=== PATIENT | male | born 1940 | race Caucasian/White ===

== ENCOUNTER 2016-06-09 11:02 | Outpatient (CLI) | payer MEDICARE, OTHER | END 2016-06-09 11:03 | disposition home or self-care (01) | DX: G47.33 Obstructive sleep apnea (adult) (pediatric) (principal) | CPT/HCPCS: 99213; G0463 ==

== ENCOUNTER 2017-08-27 11:10 | Outpatient (CLI) | payer MEDICARE, OTHER | END 2017-08-27 11:11 | disposition home or self-care (01) | LOC: SC 11:10 | PROVIDERS: ATTEND Nurse Practitioner Family | DX: G47.33 Obstructive sleep apnea (adult) (pediatric) (principal) | CPT/HCPCS: 99214; G0463; 99212 ==

== ENCOUNTER 2018-01-12 11:25 | Outpatient (CLI) | payer MEDICARE, OTHER | END 2018-01-12 11:26 | disposition home or self-care (01) | LOC: SC 11:25 | PROVIDERS: ATTEND Nurse Practitioner Family | DX: G47.33 Obstructive sleep apnea (adult) (pediatric) (principal) | CPT/HCPCS: 99214; G0463; 99212 ==

== ENCOUNTER 2018-07-17 22:10 | Emergency (ER) | payer MEDICARE, OTHER ==
[2018-07-17 22:19] VITALS: BP 161/78
--- NOTE | 2018-07-17 23:29 | ED Physician Documentation ---
History of Present Illness - Stated complaint Stated Complaint: BP CONCERN - Chief complaint Chief Complaint: General - History obtained from History obtained from: Patient, Family - History of Present Illness Timing: Today - Additonal information Additional information: 78-year-old male had a syncopal episode 2 days ago after getting nauseous at his breakfast table. He did not injure himself and he subsequently recovered without sequelae. He denies any current illness. He states that he has had this nausea about every 6 months previously and he has been evaluated for here in the emergency department with negative workup. Tonight he had felt warm and he became concerned and checked his blood pressure and it was elevated. He became concerned about this and is come to the emergency department for blood pressure check. He states that he is not interested in further workup of his episode from . Review of Systems Constitutional: denies: Fever, Chills Eyes: denies: Decreased vision Ears: denies: Ear pain Nose: denies: Rhinorrhea / runny nose, Congestion Throat: denies: Sore throat Cardiac: denies: Chest pain / pressure, Palpitations Respiratory: denies: Dyspnea, Cough GI: reports: Nausea. denies: Abdominal Pain, Vomiting, Constipation, Diarrhea : denies: Dysuria, Frequency Skin: denies: Rash Musculoskeletal: denies: Neck pain, Back pain, Extremity pain Neurologic: reports: Syncope. denies: Generalized weakness, Focal weakness, Numbness, Seizure, Confused, Altered mental status, Headache, Head injury, LOC PD PAST MEDICAL HISTORY - Past Medical History Cardiovascular: Hypertension, High cholesterol Respiratory: None Endocrine/Autoimmune: None GI: Colon polyps : Other HEENT: Chronic hearing loss, Other Psych: None Musculoskeletal: Osteoarthritis, Other Derm: None - Past Surgical History Past Surgical History: Yes General: Colonoscopy Ortho: Other Cardiovascular: Cardiac catheterization HEENT: Cataracts - Present Medications Home Medications: Ambulatory Orders Medication Instructions Recorded Confirmed Aspirin Chewable [[facility] 81 mg PO DAILY 06/27/13 06/25/14 Aspirin] Atorvastatin Calcium 300 mg PO 06/27/13 06/25/14 Carvedilol 6.25 mg PO 06/25/14 06/25/14 Nitroglycerin [Nitrostat] 0.4 mg SL PRN PRN 06/25/14 06/25/14 - Allergies Allergies/Adverse Reactions: Allergies Allergy/AdvReac Type Severity Reaction Status Date / Time No Known Drug Allergies Allergy Verified 07/17/18 22:19 - Social History Does the pt smoke?: No Smoking Status: Never smoker Does the pt drink ETOH?: Yes - Immunizations Immunizations are current?: Yes PD ED PE NORMAL - Vitals Vital signs reviewed: Yes (hypertensive systolic ) - General General: Alert and oriented X 3, No acute distress, Well developed/nourished - HEENT HEENT: Atraumatic, PERRL, EOMI, Ears normal, Moist mucous membranes - Neck Neck: Supple, no meningeal sign, No bony TTP - Cardiac Cardiac: RRR, No murmur - Respiratory Respiratory: No respiratory distress, Clear bilaterally - Abdomen Abdomen: Soft, Non tender - Back Back: No CVA TTP, No spinal TTP - Derm Derm: Normal color, Warm and dry, No rash - Extremities Extremities: No deformity, No edema - Neuro Neuro: Alert and oriented X 3, ingot supervisor 2-12 intact, No motor deficit, No sensory deficit, Normal speech Eye Opening: Spontaneous Motor: Obeys Commands Verbal: Oriented GCS Score: 15 - Psych Psych: Normal mood, Normal affect Results - Vitals Vitals: Vital Signs - 24 hr 07/17/18 22:12 Temperature 36.6 C Heart Rate 67 Respiratory 15 Rate Blood Pressure 161/78 H O2 Saturation 98 Oxygen O2 Source Room air Procedures - IVC sono (time) 2325 Bedside IVC sono: IVC measures (cm) (1.68), Euvolemia PD MEDICAL DECISION MAKING - ED course Complexity details: reviewed old records, reviewed results, re-evaluated patient, considered differential, d/w patient, d/w family ED course: 78-year-old male with a history of nonocclusive coronary artery disease who has had multiple stress tests which are negative has had prior workups here in the emergency department for similar situations which were also negative. Today he is here with elevated blood pressure and on review of systems we really find nothing of significance with the exception of the episode he had 2 days ago. I have offered to complete a workup related to the syncopal episode and the patient declines. He states that he has had prior workups without finding he suspects this will be similar today. He does not feel ill. He is primarily concerned about his blood pressure numbers and I discussed with him numbers to be concerned about. He will follow-up with his primary. Departure - Departure Disposition: Home, Self Care Clinical Impression: Hypertension Qualifiers: Hypertension type: unspecified Qualified Code(s): I10 - Essential (primary) hypertension Condition: Stable Instructions: ED HTN Established Follow-Up: Ayan Rodrigez MD [Primary Care Provider] -
== END 2018-07-17 23:45 | disposition home or self-care (01) ==
LOC: ED 22:10
DX: I10 Essential (primary) hypertension (principal); I25.10 Atherosclerotic heart disease of native coronary artery without angina pectoris; E78.00 Pure hypercholesterolemia, unspecified; Z79.82 Long term (current) use of aspirin
CPT/HCPCS: 99282; 99283

== ENCOUNTER 2018-11-11 11:35 | Outpatient (CLI) | payer MEDICARE, OTHER ==
--- NOTE | 2018-11-11 15:12 | XRAY Report ---
Reason: PAIN IN RIGHT KNEE Procedure Date: 11/11/2018 Accession Number: [id number] / [id number] Procedure: XR - Knee 3 View RT CPT Code: FULL RESULT: EXAM: RIGHT KNEE RADIOGRAPHY EXAM DATE: 11/11/2018 12:03 PM. CLINICAL HISTORY: Pain in right knee. COMPARISON: XR KNEE 3 VIEW 04/08/2010 11:35 AM. TECHNIQUE: 3 views. FINDINGS: Bones: Normal. No fractures or bone lesions. Joints: There has been interval decrease in the joint space especially in the medial weightbearing compartment. There is subtle chondrocalcinosis. There is a small joint effusion. There is no subluxation. Soft Tissues: Vascular calcifications are again noted. IMPRESSION: Small joint effusion and mild progression of degenerative changes. [facility]
== END 2018-11-11 11:36 | disposition home or self-care (01) ==
LOC: DI 11:35
PROVIDERS: ATTEND Internal Medicine
DX: M17.11 Unilateral primary osteoarthritis, right knee (principal); M25.461 Effusion, right knee

== ENCOUNTER 2018-12-28 09:19 | Outpatient (CLI) | payer MEDICARE, OTHER ==
--- NOTE | 2018-12-28 09:29 | CONSULTATION NOTE ---
- History of Present Illness SAMANTHA KHALIL returns for follow up of the recently performed manual titration. The patient was informed of the following polysomnography findings: I explained the pathophysiology behind obstructive sleep apnea and CPAP treatment process and benefit. I reviewed the impact of weight changes on sleep apnea and strongly recommended losing weight. After some discussion, the patient opted to go with the nasal CPAP therapy. He felt much better the following CPAP titration study. I explained how CPAP machine works with sample devices Respironics Dreamstation and [employer] [id number] and what to expect when using the machine. Using CPAP every night in order to get used to it was emphasized. Patient advised to put CPAP mask on before getting into bed so as not to fall asleep without CPAP. To assist acclimation to CPAP use, it could also be used for a short time during day while reading or watching TV. The patient was instructed to call the CPAP supplier to discuss any mechanical problem that may occur. If the mask given is uncomfortable or is difficult to keep on through the night even with adjustment, contact the CPAP supplier as many will replace with another mask style if notified before 30 days. If snoring or perceives is not getting enough air or too much air from the machine, notify this office. [facility] patient education PAP tips reviewed and given to patient. Patient counseled not drink alcohol less than 4 hours before bedtime as it can increase snoring and apnea. Patient was cautioned about risks of drowsy driving until sleepiness symptoms resolve. Patient denies drowsy driving. [facility] patient education on snoring and sleep apnea given and reviewed. - Allergies/Medications Allergies and home medications reviewed: Yes - Review of Systems Review of systems same as previous: Yes - Physical Exam Blood Pressure: 120/70 Cuff size: long Heart Rate: 78 O2 Saturation: 98 Height: 6 ft 1.5 in Weight (kg): 120.928 kg Body Mass Index: 34.7 BMI Classification: Class 1 - Impression 1. Obstructive Sleep Apnea-Hypopnea Syndrome, severe, with lowest oxygen saturation of 80%. As noted above patientts optimal CPAP pressure was 9cmH20 so I will order a CPAP at that pressure. He prefers the Dreamstation so this will be included on his order. Compliance guidelines also reviewed. A copy of compliance guidelines will be given for reference at check out. Because the apnea is more severe supine, I instructed to avoid sleeping supine using pillow positioning until able to start CPAP use. - Plan [id number] Subjective: Nasal autoCPAP therapy, pressure at 9 cm H2O. Attempt to lose weight. Avoid alcohol consumption near bedtime. Avoid supine sleep until using CPAP. The patient is again cautioned about driving until sleepiness completely resolves on CPAP therapy. Return one month after CPAP obtained. I will assess response to therapy and compliance at that time. I spent 100% of this minute visit face to face with the patient with greater than 50% of this was spent time counseling the patient and coordination of care.
[2018-12-28 10:21] VITALS: BP 124/64
--- NOTE | 2018-12-28 10:21 | CONSULTATION NOTE ---
Information from patient questionnaire entered by Rasheeda Garcia. I have reviewed and concur with the information entered by Rasheeda Garcia. This document represents the service I personally performed and the decisions made by me, Rhoda North, RN, MSN, BALLET PROFESS[employer]. History of Present Illness Previous diagnosis: Mild, Obstructive Sleep Apnea-Hypopnea Syndrome AHI: 11 Reason for CPAP follow up: annual Equipment obtained from: [employer] (Patient is very frustrated with service from [employer]. He is having difficulty getting supplies in a timely manner despite repeated attemtps.) Mask style: Full face Mask brand: Respironics Backup mask available: Yes Last cushion change: 2 weeks ago. CPAP Compliance Data - Data Reviewed with Patient Average duration of nightly device use: 7h 23m Compliance rate %: 99.4 Current pressure setting (cmH2O): 7-10 Humidity settin Heated hose settin Average residual AHI: 2.9 Subjective Missed days of use due to: reports: other (patient does not recall missing one day as shown on compliance. ) Patient concerns: reports: air blowing in eyes (once or twice a week when he sleeps on his side. He does not want to try a CPAP pillow. ), dry mouth, nose, throat (dry mouth weekly ). denies: aerophagia, mask discomfort, mask leak noise (He sleeps through mask leaks and will alert patient to fix mask. ), condensation in mask/hose, nasal congestion, epistaxis Observed to snore while using device: No On therapy, patient: reports: sleeping better, awakening more refreshed, being more awake and alert during the day, more rested overall. denies: drowsiness while driving Initial [place] Sleepiness Scale score: 6 Current [place] Sleepiness Scale score: 0 Review of Systems Review of systems same as previous: Yes Cardiovascular: reports: high blood pressure Urinary: reports: impotence Ear/Nose/Throat: reports: wisdom teeth removed Musculoskeletal: reports: joint pain, back pain Allergies and Home Medications Known drug allergies: No Home medication list reviewed: Yes Allergy and home medication list: Stopped aspirin Physical Exam Blood Pressure: 124/64 Cuff size: regular Heart Rate: 53 (regular) O2 Saturation: 97 Height: 5 ft 10 in Weight (kg): 97.704 kg Body Mass Index: 30.9 Impression and Plan 1. Obstructive Sleep Apnea-Hypopnea Syndrome, mild, with good treatment compliance and good apnea control. On CPAP therapy, there is improved sleep quality and continues to feel more rested overall. For oral dryness, I showed patient how to lower the heated hose with rationale discussed for use of heated hose and humidity. For his supply concerns, I informed patient that he can transfer to a new company. My fire coordinator will inform him of his choices. If continued problems with getting supplies, he can transfer again. Patient's apnea severity and rationale for treatment to reduce apnea, improve sleep quality and reduce cardiovascular and cerebrovascular events was reviewed. I also reviewed the benefit of consistent device use of CPAP for hypertension, cardiac disease. I spent 100% of this [] minute visit face to face with the patient with greater than 50% of this was spent time counseling the patient and coordination of care.
== END 2018-12-28 09:20 | disposition home or self-care (01) ==
LOC: SC 09:19
PROVIDERS: ATTEND Nurse Practitioner Family
DX: G47.33 Obstructive sleep apnea (adult) (pediatric) (principal)
CPT/HCPCS: 99212; 99215

== ENCOUNTER 2020-06-04 12:58 | Outpatient (CLI) | payer MEDICARE, OTHER ==
--- NOTE | 2020-06-04 13:31 | SLEEP CARE CONSULTATION ---
Information from patient questionnaire entered by Leah Smith. I have reviewed and concur with the information entered by Leah Smith. This document represents the service I personally performed and the decisions made by me, Jatinder Keyes MD, [facility]. History of Present Illness Service Date and Time: 06/04/2020 1258 Previous diagnosis: Mild, Obstructive Sleep Apnea-Hypopnea Syndrome AHI: 11 (in 2011) Reason for follow up: annual (last seen 12/2018) Equipment type: CPAP Mask style: Full face Prior sleep studies: Yes Year and Where[facility] 2011 [facility] Type of Sleep Study: Polysomnography HPI additional information: HPI: Mr. Daugherty was diagnosed to have mild obstructive sleep apnea-hypopnea syndrome and returns today for annual follow up of CPAP therapy. The patient gets his supplies from [employer]. He wears a full face mask which he says it fits well. He continues to use the device nightly and all through the night. The compliance report shows that he uses the device 30 nights out of the past 30 nights, averaging 7.7 hours a night. He complains of no particular problem with the device such as soreness on the face, dry nose, epistaxis, nasal congestion or headache. He thinks that the pressure of 7 - 10 cmH2O is comfortable. On the CPAP therapy he notices improvement in his sleep quality, and that he wakes up feeling fresher in the morning and more awake/alert during the day. [place] Sleepiness Scale score is 0. His notices no snore at all. The average residual AHI is 2.0; and large leak, 2 minutes a night. CPAP Compliance Data - Data Reviewed with Patient Average duration of nightly device use: 7 hr 20 min Compliance rate %: 70.6 (180 days)(100 for last 30) Current pressure setting (cmH2O): 7-10 Humidity settin Heated hose settin Average residual AHI: 2.2 Average large leak: 6 min 23 sec Subjective Initial [place] Sleepiness Scale score: 6 (in 2011) Current [place] Sleepiness Scale score: 0 Allergies and Home Medications Drug allergies reviewed: Yes Home medication list reviewed: Yes Review of Systems Review of systems same as previous: Yes Physical Exam Vital signs obtained and entered by: To minimize the risk of COVID-19 exposure, detailed exam was not performed. Height: 5 ft 10 in Weight: 205 lb Body Mass Index: 29.4 BMI Classification: Overweight Impression and Plan IMPRESSION: 1. Obstructive Sleep Apnea-Hypopnea Syndrome, mild, with the patient continuing to do well on nasal CPAP therapy. He has excellent compliance and significant clinical benefits. The current pressure appears effective and comfortable. Overall, he is very satisfied with treatment and plans to continue with it long-term. No adjustment is necessary today. PLAN: 1. Continue with nasal CPAP therapy with 7 - 10 cm H2O. 2. Try to lose weight 3. Return in one year for follow up or earlier if there is any problem with the treatment. If he has moved to [place] by then, he should find himself another sleep physician down there. Visit Type: In Office Time Spent with Patient (minutes): 20 Provider Statement: I spent 100% of the Face to Face Visit with the patient with greater than 50% spent counseling the patient and coordination of care.
== END 2020-06-04 12:59 | disposition home or self-care (01) ==
LOC: SC 12:58
PROVIDERS: ATTEND Internal Medicine Pulmonary Disease
DX: G47.33 Obstructive sleep apnea (adult) (pediatric) (principal); E66.3 Overweight; Z68.29 Body mass index [BMI] 29.0-29.9, adult
CPT/HCPCS: 99213; G0463; 99212